=== PATIENT | female | born 1975 | race African-American/Black ===

== ENCOUNTER 2016-03-03 20:36 | Emergency (ER) | payer OTHER ==
[2016-03-03 20:55] VITALS: BP 117/75
--- NOTE | 2016-03-03 21:07 | UC ---
Knee Pain HPI - HPI Summary HPI Summary: The patient comes in today for: 1. Right knee swelling: Onset: 4-5 days. Palliative/provocative: Going up and down stairs leads to worsening of the pain. Flexion of the knee also makes it hurt. Quality: Ache, and sharp Region: Above the patella and lateral knee joint (right). Severity: Sitting/standin/10, but with stair climbin/10 Time: Comes and goes depending on what she is doing. Associated symptoms: Home treatment: Icing Event: She has not injured it--just work up with a swollen knee along with pain. Fevers: None. Previous disease: None. * - History of Current Complaint Chief Complaint: UCLowerExtremity Stated Complaint: KNEE PAIN Time Seen by Provider: 03/03/16 20:59 Hx Obtained From: Patient Hx Last Menstrual Period: 02/28/16 ?: No - Allergies/Home Medications Allergies/Adverse Reactions: Allergies Allergy/AdvReac Type Severity Reaction Status Date / Time Clarithromycin [From Biaxin] Allergy Intermediate Rash Verified 03/03/16 20:55 PMH/Surg Hx/FS Hx/Imm Hx Previously Healthy: Yes Endocrine History Of: Denies: Diabetes, Thyroid Disease, Hyperthyroidism, Hypothyroidism, Dyslipidemia Cardiovascular History Of: Denies: Cardiac Disorders, Hypertension, Pacemaker/ICD, Myocardial Infarction , Congestive Heart Failure, Atrial Fibrillation, Deep Vein Thrombosis, Bleeding Disorders Respiratory History Of: Denies: COPD, Asthma, Bronchitis, Pneumonia, Pulmonary Embolism GI/ History Of: Denies: Gastroesophageal Reflux, Ulcer, Gastrointestinal Bleed, Gall Bladder Disease, Kidney Stones, Diverticulitis, Renal Disease, Urosepsis Neurological History Of: Denies: TIA, CVA, Dementia, Seizures, Migraine Psychological History Of: Denies: Anxiety, Depression, Bipolar Disorder, Schizophrenia, Post Traumatic Stress Disorder Cancer History Of: Denies: Lung Cancer, Colorectal Cancer, Breast Cancer, Prostate Cancer, Cervical Cancer Other History Of: Negative For: HIV, Hepatitis B, Hepatitis C, Anticoagulant Therapy - Surgical History Surgical History: Yes Surgery Procedure, Year, and Place: Cone biopsy of cervix - Negative - Family History Known Family History: Positive: Hypertension, Other - no known FHx of kidney stones Negative: Cardiac Disease, Diabetes - Social History Occupation: Employed Full-time Alcohol Use: Rare Substance Use Type: None Smoking Status (MU): Never Smoked Tobacco - Immunization History Most Recent Tetanus Shot: UNKNOWN Review of Systems Constitutional: Negative Skin: Negative Eyes: Negative ENT: Negative Respiratory: Negative Cardiovascular: Negative Gastrointestinal: Negative Genitourinary: Negative All Other Systems Reviewed And Are Negative: Yes Physical Exam Triage Information Reviewed: Yes Appearance: Well-Appearing, No Pain Distress, Well-Nourished Vital Signs: Initial Vital Signs Pulse 82 03/03/16 20:51 Resp 16 03/03/16 20:51 BP 117/75 03/03/16 20:51 Pulse Ox 100 03/03/16 20:51 Vital Signs Reviewed: Yes Eyes: Positive: Conjunctiva Clear. Negative: Discharge ENT: Positive: Hearing grossly normal. Negative: Pharyngeal erythema, Nasal congestion, Nasal drainage, TM bulging, TM dull, TM red, Tonsillar swelling, Tonsillar exudate Dental: Negative: Gross Decay/Caries @, Dental Fracture @ Neck: Positive: Supple, Nontender, No Lymphadenopathy. Negative: Nuchal Rigidity Respiratory: Positive: Chest non-tender, Lungs clear, No respiratory distress, No accessory muscle use. Negative: Crackles, Wheezing Cardiovascular: Positive: RRR, No Murmur Abdomen Description: Positive: Nontender, No Organomegaly, Soft Musculoskeletal: Positive: Strength Intact, ROM Intact, No Edema, Other: - Right knee: Lateral tenderness to palpation--mild. There is no obvious effusion. No patellar pressure tenderness with pressure. No anterior meniscii tenderness to palpation. No restriction in range of motion. There is no pes anserinus bursitis tenderness or laxity of the collateral ligaments, but tenderness to stressing of the lateral collateral ligaments. No laxity of the cruciate ligaments. Neurological: Positive: Alert, Muscle Tone Normal Psychological: Positive: Age Appropriate Behavior, Consolable Skin: Negative: rashes, breakdown Diagnostics - Radiology No standard instances Xray Interpretation: Positive (See Comments) Radiology Interpretation Completed By: Radiologist - Only mild degenerative osteoarthritis. Knee Pain Course/Dx - Differential Dx/Diagnosis Differential Diagnosis/HQI/PQRI: Fracture (Closed), Sprain, Strain Provider Diagnoses: Right knee pain (patellofemoral syndrome/lateral collateral ligament strain). Discharge - Discharge Plan Condition: Stable Disposition: HOME Patient Education Materials: Patellofemoral Pain Syndrome (ED), Knee Pain (ED) , Knee Sprain (ED) Forms: *Work Release Referrals: Jorge Garcia MD [Primary Care Provider] - 1 Week (Please see your primary care provider in a week to see how well you are doing. If you get worse, please be seen sooner in the ER or through us.)
--- NOTE | 2016-03-03 22:00 | RAD ---
INDICATION: Right knee pain COMPARISON: None TECHNIQUE: 4 view radiograph of the right knee. FINDINGS: The visualized bones are well-corticated and properly aligned. Mild degenerative changes of the right knee include narrowing of the medial compartment and enthesophyte formation at the superior pole of the patella. There is no radiographic evidence of joint effusion. There is no acute fracture, dislocation or other focal bony abnormality. IMPRESSION: Mild degenerative changes of the right knee as described above. If the patient's symptoms persist, follow-up imaging is recommended.
== END 2016-03-03 22:17 | disposition home or self-care (01) ==
LOC: UCEAST 20:36
DX: M25.561 Pain in right knee (principal); M25.461 Effusion, right knee; Z88.1 Allergy status to other antibiotic agents
CPT/HCPCS: 99212; G0463

== ENCOUNTER 2016-04-23 16:52 | Emergency (ER) | payer OTHER ==
--- NOTE | 2016-04-23 18:27 | RAD ---
Indication: Fall, knee pain and knee injury. 4 views of the right knee demonstrates no fracture. No joint effusion is noted. Patellofemoral joint is unremarkable. IMPRESSION: Unremarkable right knee.
--- NOTE | 2016-04-23 19:00 | ED ---
Lower Extremity - HPI Summary HPI Summary: Pt here w/ Rt knee pain since fall prior to arrival. Pt was using a bathroom on the 3rd floor at [facility] [place] when she slipped in a wet spot - thinks she twisted her knee while standing as she started to fall backward, but over corrected then fell forward. She was on the ground and unable to get up - another person was in the bathroom and helped to get her a wheelchair - she has not tried bearing weight since injury - just came right to ED. Denies numbness, tingling, weakness or gross deformity. Pain is over the front and lateral side of the knee. Feels like an exacerbation of her ITB syndrome she's been treating through PT - worse w/ knee extension along lateral side of knee and shoots along ITB. No ankle, foot, hip or back pain. Also denies hitting head, LOC and no other injuries. - History of Current Complaint Chief Complaint: EDExtremityLower Stated Complaint: FALL Time Seen by Provider: 04/23/16 17:14 Hx Obtained From: Patient Hx Last Menstrual Period: 02/28/16 Pain Intensity: 8 - Allergies/Home Medications Allergies/Adverse Reactions: Allergies Allergy/AdvReac Type Severity Reaction Status Date / Time Clarithromycin [From Biaxin] Allergy Intermediate Rash Verified 04/23/16 17:00 PMH/Surg Hx/FS Hx/Imm Hx Previously Healthy: Yes Endocrine/Hematology History: Denies: Hx Anticoagulant Therapy, Hx Blood Disorders, Hx Diabetes, Hx Thyroid Disease, Hx Unexplained Bleeding Cardiovascular History: Denies: Hx Congestive Heart Failure, Hx Deep Vein Thrombosis, Hx Hypertension , Hx Myocardial Infarction, Hx Pacemaker/ICD Respiratory History: Denies: Hx Asthma, Hx Chronic Obstructive Pulmonary Disease (COPD), Hx Lung Cancer, Hx Pneumonia, Hx Pulmonary Embolism GI History: Denies: Hx Gall Bladder Disease, Hx Gastrointestinal Bleed, Hx Ulcer, Hx Urosepsis History: Denies: Hx Kidney Stones, Hx Renal Disease Musculoskeletal History: Reports: Other Musculoskeletal History - Rt knee ITB syndrome Neurological History: Denies: Hx Dementia, Hx Migraine, Hx Seizures, Hx Transient Ischemic Attacks (TIA) Psychiatric History: Denies: Hx Anxiety, Hx Depression, Hx Schizophrenia, Hx Bipolar Disorder - Cancer History Hx Chemotherapy: No Hx Radiation Therapy: No - Surgical History Surgery Procedure, Year, and Place: Cone biopsy of cervix - Negative Infectious Disease History: No Infectious Disease History: Denies: Hx Hepatitis, Hx Human Immunodeficiency Virus (HIV), Traveled Outside the [place] in Last 30 Days - Family History Known Family History: Positive: Hypertension, Other - no known FHx of kidney stones Negative: Cardiac Disease, Diabetes - Social History Occupation: Employed Part-time Alcohol Use: Occasionally Hx Substance Use: No Substance Use Type: Reports: None Hx Tobacco Use: No Smoking Status (MU): Never Smoked Tobacco Review of Systems Constitutional: Negative Eyes: Negative Negative: Chest Pain Negative: Shortness Of Breath Negative: Abdominal Pain, Vomiting, Nausea Positive: no symptoms reported Musculoskeletal: Other - see HPI Negative: Bruising Neurological: Negative Psychological: Normal All Other Systems Reviewed And Are Negative: Yes Physical Exam Triage Information Reviewed: Yes Vital Signs On Initial Exam: Initial Vitals Temp Pulse Resp BP Pulse Ox 99.4 F 82 16 160/90 100 04/23/16 17:00 04/23/16 17:00 04/23/16 17:00 04/23/16 17:00 04/23/16 17:00 Vital Signs Reviewed: Yes Appearance: Positive: Well-Appearing, No Pain Distress - at rest, setaed in wheelchair - complains of knee pain w/ extension, Well-Nourished Skin: Positive: Warm, Dry - no erythema, no ecchymosis, no skin laceration/ abrasion over affected area Head/Face: Positive: Normal Head/Face Inspection Eyes: Positive: Normal, EOMI, Conjunctiva Clear ENT: Positive: Hearing grossly normal, Pharynx normal Dental: Negative: Dental Fracture @ Respiratory/Lung Sounds: Positive: Breath Sounds Present Cardiovascular: Positive: Normal, Pulses are Symmetrical in both Upper and Lower Extremities. Negative: Leg Edema Left, Leg Edema Right Abdomen Description: Positive: Nontender Musculoskeletal: Positive: Pain @ - no gross deformity - Rt lateral knee joint/ ITB insertion and along ITB are TTP - gaurding, difficult to asses via Hank's , varus/valgus; pain along lateral knee w/ tibial rotation; hip, ankle NTTP and no pain w/ ROM Neurological: Positive: Normal, Sensory/Motor Intact, Alert, Oriented to Person Place, Time, CN Intact II-III Psychiatric: Positive: Normal Diagnostics - Vital Signs Vital Signs Temp Pulse Resp BP Pulse Ox 04/23/16 17:00 99.4 F 82 16 160/90 100 - Laboratory Lab Statement: Any lab studies that have been ordered have been reviewed, and results considered in the medical decision making process. Lower Extremity Course/Dx - Course Course Of Treatment: Pt's XR are w/o acute findings. Her clinical presentation reveals ITB exacerbation w/ possibly lateral meniscal injury. She has pain w/ weight bearing and attempts to flex and extend knee so it was decided to apply an immobilizer and provide pt w/ crutches. She agrees w/ plan. Paperwork completed for work injury incident. Offered pt pain meds and she stated she has her own motrin she will take once she leaves. - Diagnoses Provider Diagnoses: Right knee sprain Discharge - Discharge Plan Condition: Stable Disposition: HOME Patient Education Materials: Knee Sprain (ED), Knee Immobilizer (ED), Crutch Instructions (ED) Forms: *Work Release Referrals: Tyesha Guzman MD [Medical Doctor] - Additional Instructions: Rest, ice, elevate, and use crutches with weight bearing as tolerated Use immobilizer to avoid excess movements - may remove to shower but be careful with stability in shower. Ibuprofen 600mg every 6 hours with food for pain. May alternate with acetaminophen 650mg every 6 hours. Follow-up with orthopedist - call tomorrow to schedule an appointment.
[2016-04-23 20:05] VITALS: BP 146/76
== END 2016-04-23 19:40 | disposition home or self-care (01) ==
LOC: ED 16:52
DX: S83.91XA Sprain of unspecified site of right knee, initial encounter (principal); M25.561 Pain in right knee; W19.XXXA Unspecified fall, initial encounter; Y93.9 Activity, unspecified; Y92.9 Unspecified place or not applicable; Y99.9 Unspecified external cause status
CPT/HCPCS: 99282

== ENCOUNTER 2021-03-22 11:57 | Observation (INO) ==
[~2021-03-22 11:57] MED LIST: Clindamycin 900 MG/D5W BAG IVPB ONE
[2021-03-22 12:47] LABS: Activated Partial Thrombo Time 33.1 seconds (26.0-38.0); INR 1.08 (0.86-1.15)
[2021-03-22 12:52] LABS: Blood Urea Nitrogen 13 mg/dL (6-24); CO2 Carbon Dioxide 23 mmol/L (22-32); Calcium 8.8 mg/dL (8.6-10.3); Chloride 107 mmol/L (101-111); Glucose 85 mg/dL (70-100); Sodium 135 mmol/L (135-145); eGFR CKD-EPI 98.1 (>60)
[2021-03-22] MEDS ORDERED: Ondansetron 4 mg VIAL 2 MG/ML 2 ml VIAL ONE (12:54)
[2021-03-22] MEDS ORDERED: oxyCODONE SR 10 mg TAB ONE (12:54)
[2021-03-22 12:58] LABS: HCG Pregnancy < 0.60 mIU/mL
[2021-03-22 13:00] LABS: Hematocrit 34 % (35-47); Hemoglobin 11.2 g/dL (12.0-16.0); Mean Corpuscular HGB Conc 33 g/dL (31-36); Mean Corpuscular Hemoglobin 24 pg (27-31); Mean Corpuscular Volume 74 fL (80-97); Mean Platelet Volume 8.6 fL (7.4-10.4); Platelet Count 216 10^3/uL (150-450); Red Blood Count 4.62 10^6 /uL (3.70-4.87); Red Cell Distribution Width 15 % (10-15); White Blood Count 5.5 10^3/uL (3.5-10.8)
[2021-03-22] MEDS ORDERED: Heparin 2 UNITS/ML IVPREMIX 1,000 UNIT/500 ML BAG IV ONE ×2 (13:15→13:29)
[2021-03-22] MEDS ORDERED: Iohexol 350 (CONTRAST) 200 ML MDV IV ONE ×2 (13:15→13:37)
[2021-03-22] MEDS ORDERED: Lidocaine 1% VIAL 10 MG/ML VIAL ONE (13:15)
[2021-03-22] MEDS ORDERED: fentaNYL 250 mcg/5 ml 50 MCG/ML 5 ml VIAL (250 MCG) ONE (13:24)
[2021-03-22] MEDS ORDERED: Midazolam 5 mg/5 ml VIAL 1 mg/ml 5 ml VIAL (5 mg) ONE (13:24)
[2021-03-22] MEDS ORDERED: nitroGLYCERIN DRIP 25,000 MCG/250 ML BTL ONE (13:24)
[2021-03-22 13:51] LABS: Anion Gap 5 mmol/L (2-11)
[2021-03-22 14:08] LABS: ABS Lymphocytes 1.6 10^3/ul (1.0-4.8); ABS Monocytes 0.4 10^3/ul (0-0.8); ABS Neutrophils 3.4 10^3/ul (1.5-7.7); Eosinophil % 0.8 %; Lymphocyte % 28.7 %
[2021-03-22] MEDS ORDERED: HYDROmorphone 0.5 MG/0.5 ML SYRINGE ONE ×3 (14:42→15:40)
[2021-03-22] MEDS ORDERED: diPHENhydraMINE IV 50 MG/ML 1 ml VIAL (BENADRYL) ONE (14:45)
[2021-03-22] MEDS ORDERED: HYDROmorphone PCA 1 MG/ML Titrat per Protocol PCA SCH (16:00)
[2021-03-22 19:17] LABS: ABS Lymphocytes 0.7 10^3/ul (1.0-4.8); ABS Monocytes 0.3 10^3/ul (0-0.8); ABS Neutrophils 6.4 10^3/ul (1.5-7.7); Hematocrit 34 % (35-47); Hemoglobin 11.4 g/dL (12.0-16.0); Mean Corpuscular HGB Conc 33 g/dL (31-36); Mean Corpuscular Hemoglobin 25 pg (27-31); Mean Corpuscular Volume 74 fL (80-97); Mean Platelet Volume 8.2 fL (7.4-10.4); Platelet Count 210 10^3/uL (150-450); Red Blood Count 4.63 10^6 /uL (3.70-4.87); Red Cell Distribution Width 15 % (10-15); White Blood Count 7.4 10^3/uL (3.5-10.8)
[2021-03-22 19:22] LABS: Activated Partial Thrombo Time 31.7 seconds (26.0-38.0); INR 1.13 (0.86-1.15)
[2021-03-22 19:26] LABS: eGFR CKD-EPI 107.4 (>60)
[2021-03-22] MEDS ORDERED: Heparin 5000 UNITS/ML 1 mL VIAL SUBCUT SCH (22:00)
[2021-03-22] MEDS ORDERED: Ondansetron 4 mg VIAL 2 MG/ML 2 ml VIAL IV PRN (22:10)
[2021-03-22] MEDS ORDERED: NS 0.9% 1,000 ML IV SCH (23:45)
[2021-03-23] MEDS: Ondansetron 4 mg VIAL 2 MG/ML 2 ml VIAL IV SCH ×2 (00:31→06:25)
[2021-03-23] MEDS ORDERED: NS 0.9% 1000 ml BAG 1,000 ML IV SCH (01:00)
[2021-03-23 06:38] LABS: ABS Lymphocytes 0.7 10^3/ul (1.0-4.8); ABS Monocytes 0.4 10^3/ul (0-0.8); ABS Neutrophils 6.5 10^3/ul (1.5-7.7); Hematocrit 33 % (35-47); Hemoglobin 10.7 g/dL (12.0-16.0); Lymphocyte % 8.8 %; Mean Corpuscular HGB Conc 33 g/dL (31-36); Mean Corpuscular Hemoglobin 24 pg (27-31); Mean Corpuscular Volume 74 fL (80-97); Mean Platelet Volume 8.9 fL (7.4-10.4); Nucleated Red Blood Cells % 0.1; Platelet Count 193 10^3/uL (150-450); Red Blood Count 4.46 10^6 /uL (3.70-4.87); Red Cell Distribution Width 15 % (10-15); White Blood Count 7.6 10^3/uL (3.5-10.8)
[2021-03-23] MEDS ORDERED: HYDROcodone/ACETAMIN 5/325 mg TAB PO PRN (08:24)
[2021-03-23] MEDS ORDERED: Ketorolac 10 mg TAB (NF) PO SCH (09:00)
[2021-03-23 10:08] LABS: Ferritin 38.2 ng/mL (11-307)
[2021-03-23 11:28] VITALS: BP 181/96
[2021-03-23] MEDS ORDERED: Morphine 2 MG/ML SYRINGE IV ONE (11:48)
[2021-03-24 15:25] LABS: % Iron Saturation 26 % (14 - 50); Total Iron Binding Capacity 286 mcg/dL (250 - 400)
== END 2021-03-23 13:50 | disposition home or self-care (01) ==
LOC: CHICATH 11:57 → SSU 18:27 → INTOOBSV 18:27
PROVIDERS: ADMIT Radiology Diagnostic Radiology; ATTEND Radiology Diagnostic Radiology
PROC: ANG.UFE (2021-03-22 13:10)